=== PATIENT | male | born 2000 | race Caucasian/White ===

== ENCOUNTER 2022-09-24 13:34 | Emergency (ER) | payer OTHER ==
[2022-09-24 13:45] VITALS: BP 139/66; PULSE 62; RESP 19; TEMP 97.8; BMI 32.1
[2022-09-24] MEDS ORDERED: SODIUM CHLORIDE 0.9% 500 ML INFUS.BAG IV ONE (13:56)
[2022-09-24] MEDS ORDERED: ACETAMINOPHEN 1000 MG/100 ML BAG IVPB ONE (13:56)
[2022-09-24] MEDS ORDERED: KETOROLAC TROMETHAMINE 30 MG/1 ML VIAL IVPUSH ONE (13:56)
[2022-09-24] MEDS ORDERED: ACETAMINOPHEN INJECTION 100 ML IVPB ONE (14:13)
[2022-09-24] MEDS ORDERED: KETOROLAC TROMETHAMINE 30 MG/1 ML VIAL ONE (14:14)
[2022-09-24 14:33] LABS: BASO % 0.6 % (0-2.0); EOS % 1.6 % (0-4.5); HEMATOCRIT 42.6 % (35.4-49); HEMOGLOBIN 14.5 GM/dL (11.7-16.9); MCH 30.5 pg (25.7-33.7); MCHC 34.1 g/dl (32.0-35.9); MEAN CELL VOLUME 89.3 fl (80-96); MONO % 5.3 % (3.8-10.2); NEUT % 66.5 % (42.8-82.8); PLATELET COUNT 326 10^3/uL (134-434); RBC 4.77 M/mm3 (4.00-5.60); WHITE BLOOD COUNT 9.3 K/mm3 (4.0-10.0)
[2022-09-24 14:56] LABS: POTASSIUM 4.2 mmol/L (3.5-5.1)
[2022-09-24 14:57] LABS: CALCIUM 9.5 mg/dL (8.5-10.1)
[2022-09-24 14:58] LABS: BLOOD UREA NITROGEN 9.3 mg/dL (7-18)
== END 2022-09-24 15:18 | disposition home or self-care (01) ==
LOC: JER 13:34
PROC: 3E033NZ Introduction of Analgesics, Hypnotics, Sedatives into Peripheral Vein, Percutaneous Approach (ICD-10-PCS; principal; 2022-09-24)
PROC: 3E033NZ Introduction of Analgesics, Hypnotics, Sedatives into Peripheral Vein, Percutaneous Approach (ICD-10-PCS; 2022-09-24)
DX: G43.009 Migraine without aura, not intractable, without status migrainosus (principal)
CPT/HCPCS: 36415; 80048; 85025; 99284-25

== ENCOUNTER 2022-12-10 02:04 | Emergency (ER) | payer OTHER ==
[2022-12-10 02:11] VITALS: BP 148/84; PULSE 73; RESP 18; TEMP 98.6; BMI 30.4
[2022-12-10] MEDS ORDERED: METOCLOPRAMIDE HCL INJECTION 10 MG/2 ML VIAL IVPUSH ONE (02:50)
[2022-12-10] MEDS ORDERED: LACTATED RINGERS SOLUTION 1000 ML INFUS.BAG IV ONE (02:50)
[2022-12-10] MEDS ORDERED: METOCLOPRAMIDE HCL INJECTION 10 MG/2 ML VIAL ONE (03:19)
[2022-12-10 03:38] LABS: BASO % 1.1 % (0-2.0); EOS % 6.4 % (0-4.5); HEMATOCRIT 42.1 % (35.4-49); HEMOGLOBIN 14.4 GM/dL (11.7-16.9); LYMPH % 44.6 % (8-40); MCH 30.6 pg (25.7-33.7); MCHC 34.2 g/dl (32.0-35.9); MEAN CELL VOLUME 89.4 fl (80-96); MONO % 8.2 % (3.8-10.2); NEUT % 39.7 % (42.8-82.8); PLATELET COUNT 349 10^3/uL (134-434); RBC 4.71 M/mm3 (4.00-5.60); RDW 13.5 % (11.9-15.9); WHITE BLOOD COUNT 9.4 K/mm3 (4.0-10.0)
[2022-12-10 03:53] LABS: CHLORIDE 107 mmol/L (98-107); POTASSIUM 3.7 mmol/L (3.5-5.1); SODIUM 140 mmol/L (136-145)
[2022-12-10 03:55] LABS: CALCIUM 9.1 mg/dL (8.5-10.1)
[2022-12-10 03:56] LABS: ALBUMIN 4.2 g/dl (3.4-5.0); ANION GAP 5 mmol/L (4-13); BLOOD UREA NITROGEN 11.9 mg/dL (7-18); CO2 28 mmol/L (21-32); GLUCOSE,RANDOM 133 mg/dL (74-106)
[2022-12-10 03:59] LABS: SGOT/AST 23 U/L (15-37); SGPT/ALT 35 U/L (13-61)
[2022-12-10 04:00] LABS: BILIRUBIN,TOTAL < 0.1 mg/dL (0.2-1)
[2022-12-10 04:01] LABS: TOT PROT 7.3 g/dl (6.4-8.2)
[2022-12-10 04:02] LABS: ALK PHOS 76 U/L (45-117)
== END 2022-12-10 05:14 | disposition home or self-care (01) ==
LOC: JER 02:04
PROC: 3E033GC Introduction of Other Therapeutic Substance into Peripheral Vein, Percutaneous Approach (ICD-10-PCS; principal; 2022-12-10)
DX: R51.9 Headache, unspecified (principal); R11.2 Nausea with vomiting, unspecified; R42 Dizziness and giddiness; Z20.822 Contact with and (suspected) exposure to COVID-19
CPT/HCPCS: 0241U-QW; 36415; 70450-TC; 70496-TC; 80053; 85025; 96374; 99285-25